=== PATIENT | female | born 1950 | race Caucasian/White ===

== ENCOUNTER → 2016-05-12 | Outpatient (CLI) | payer MEDICARE, OTHER ==
[~2016-05-12] MED LIST: ASPIRIN 81M81 MG/TA2 PO; BRILINTA90 MG PO; HCTZ 25MG TAB25 MG PO; TARKA 1 MG-2401 TER PO; VESICARE 5MG5 MG PO
== END ==
LOC: MC.RAD 08:37
DX: Z12.31 Encounter for screening mammogram for malignant neoplasm of breast (principal)

== ENCOUNTER → 2018-07-30 | Outpatient (CLI) | payer MEDICARE, OTHER | LOC: MC.RAD 09:48 | DX: Z12.31 Encounter for screening mammogram for malignant neoplasm of breast (principal) ==

== ENCOUNTER 2020-07-21 15:08 | Outpatient (CLI) | payer MEDICARE, OTHER ==
[~2020-07-21] VITALS: Ht 157.5 cm; Wt 75.0 kg
[2020-07-21 15:59] VITALS: BP 109/62; PULSE 63; TEMP 98.1
[2020-07-21] MEDS ORDERED: LIPITOR20 MG PO (16:13)
[2020-07-21] MEDS ORDERED: DITROPAN 5MG TAB5 MG PO (16:14)
[2020-07-21] MEDS ORDERED: VITAMIN D 400400 IU PO (16:14)
[2020-07-21] MEDS ORDERED: VITAMIN B COMPL1 SGL PO (16:15)
== END 2020-07-21 17:02 | disposition home or self-care (01) ==
LOC: EUO 15:08
DX: M81.0 Age-related osteoporosis without current pathological fracture (principal); M85.80 Other specified disorders of bone density and structure, unspecified site
CPT/HCPCS: J3489

== ENCOUNTER → 2020-07-26 | Outpatient (CLI) | payer MEDICARE ==
[~2020-07-26] MED LIST changes: +DITROPAN 5MG TAB5 MG PO; +LIPITOR20 MG PO; +VITAMIN B COMPL1 SGL PO; +VITAMIN D 400400 IU PO
== END ==
LOC: MC.RAD 13:45
DX: Z12.31 Encounter for screening mammogram for malignant neoplasm of breast (principal)

== ENCOUNTER 2021-04-06 09:18 | Emergency (ER) | payer MEDICARE ==
[~2021-04-06] VITALS: Ht 154.9 cm; Wt 72.7 kg
[2021-04-06] MEDS ORDERED: ALDACTONE 25MG25 M1 PO (09:50)
[2021-04-06 14:21] VITALS: TEMP 97.3
[2021-04-06 15:45] VITALS: BP 142/81; PULSE 79
== END 2021-04-06 15:50 | disposition home or self-care (01) ==
LOC: COL.ER 09:18
DX: T18.128A Food in esophagus causing other injury, initial encounter (principal); I10 Essential (primary) hypertension; Z79.899 Other long term (current) drug therapy
CPT/HCPCS: J0330; J1100; J2405; J2704; J7030

== ENCOUNTER 2021-07-11 13:51 | Outpatient (CLI) | payer MEDICARE ==
[~2021-07-11] VITALS: Ht 154.9 cm; Wt 74.7 kg
[~2021-07-11 13:51] MED LIST changes: +ALDACTONE 25MG25 M1 PO
[2021-07-11 14:18] VITALS: BP 112/57; PULSE 59; TEMP 97.2
[2021-07-11] MEDS ORDERED: DITROPAN XL 5MG5 M1 PO (14:24)
[2021-07-11] MEDS ORDERED: PROTONIX 40MG T40 MG PO (14:24)
[2021-07-11] MEDS ORDERED: GLUCOSAMINE & C1 CA2 PO (14:26)
== END 2021-07-11 15:54 | disposition home or self-care (01) ==
LOC: EUO 13:51
DX: M81.0 Age-related osteoporosis without current pathological fracture (principal)
CPT/HCPCS: J3489

== ENCOUNTER 2022-07-12 14:30 | Outpatient (CLI) | payer MEDICARE ==
[~2022-07-12] VITALS: Ht 154.9 cm; Wt 72.0 kg
[~2022-07-12 14:30] MED LIST changes: +DITROPAN XL 5MG5 M1 PO; +GLUCOSAMINE & C1 CA2 PO; +PROTONIX 40MG T40 MG PO
[2022-07-12 15:25] VITALS: BP 100/69; PULSE 50; TEMP 97.8
[2022-07-12] MEDS ORDERED: VERAPAMIL240 MG/TAB PO (15:27)
[2022-07-12] MEDS ORDERED: MAVIK4 MG PO (15:28)
[2022-07-12] MEDS ORDERED: DITROPAN 5MG TAB5 MG PO (15:29)
== END 2022-07-12 15:52 ==
LOC: EUO 14:30
DX: M85.89 Other specified disorders of bone density and structure, multiple sites (principal)
CPT/HCPCS: J3489

== ENCOUNTER → 2022-12-25 | Outpatient (CLI) | payer MEDICARE ==
[~2022-12-25] MED LIST changes: +MAVIK4 MG PO; +VERAPAMIL240 MG/TAB PO
== END ==
LOC: COL.RAD 07:29
DX: K44.9 Diaphragmatic hernia without obstruction or gangrene (principal); K21.9 Gastro-esophageal reflux disease without esophagitis

== ENCOUNTER 2023-02-16 14:48 | Emergency (ER) | payer MEDICARE ==
[~2023-02-16] VITALS: Ht 2.5 cm; Wt 61.8 kg
[~2023-02-16 14:48] MED LIST changes: +MASON NATURAL2000 IU PO; +MIRALAX PA17 GM/Dose PO; +MOVE FREE ULTR1 EAC1 PO; +NORCO 325 MG-51 TAB PO; +PROBIOTIC DIGE1 EACH PO
[2023-02-16 15:32] LABS: BASO % 0.3 % (0.0-2.0); EOS # 0.1 K/mm3 (0.0-0.7); EOS % 0.9 % (0.0-4.0); GRAN # 8.8 K/mm3 (1.4-6.5); GRAN % 74.6 % (42.2-75.2); HEMOGLOBIN 11.9 g/dl (12.5-16.0); LYMPH # 1.8 K/mm3 (1.2-3.4); LYMPH % 15.2 % (20.0-51.0); MEAN CELL VOLUME 97 fl (80.0-100.0); MEAN CORPUSCULAR HEMOGLOBIN 31 pg (27-31); MEAN CORPUSCULAR HGB CONC 32 g/dl (33.0-37.0); MEAN PLATELET VOLUME 9.4 fl (7.4-10.4); MONO % 8.5 % (1.7-9.3); PLATELET COUNT 466 K/mm3 (130-400); RED BLOOD COUNT 3.79 M/mm3 (4.10-5.30); REDCELL DISTRIBUTION WIDTH-CV 13.6 % (11.5-14.5)
[2023-02-16 15:33] LABS: HEMATOCRIT 36.7 % (37.0-47.0)
[2023-02-16 15:58] LABS: ALBUMIN 3.3 gm/dL (3.4-4.8); BILIRUBIN,TOTAL 0.5 mg/dL (0.2-1.2); CALCIUM 10.3 mg/dL (8.4-10.2); CREATININE, serum 1.22 mg/dL (0.57-1.11); POTASSIUM 4.5 mmol/L (3.5-4.5); TOTAL PROTEIN 8.1 gm/dL (6.2-8.1)
[2023-02-16 17:22] VITALS: BP 114/76; PULSE 101; TEMP 97.9
== END 2023-02-16 17:40 | disposition home or self-care (01) ==
LOC: COL.ER 14:48
PROVIDERS: Family Medicine
DX: R07.89 Other chest pain (principal); R06.02 Shortness of breath
CPT/HCPCS: J2270; J2405; Q9967

== ENCOUNTER → 2023-04-04 | Outpatient (CLI) | payer MEDICARE ==
[~2023-04-04] MED LIST changes: +Albuterol 0.083% Neb Soln 2.5 MG/3 ML UD IH ONE
== END ==
LOC: COL.CARD 13:59
DX: R06.02 Shortness of breath (principal)

== ENCOUNTER → 2023-04-05 | Outpatient (CLI) | payer MEDICARE ==
[~2023-04-05] MED LIST changes: +Methacholine Vial A (Clear Label Base-Cntrl) IH ONE; +Methacholine Vial B (Red Label) 0.0625 MG/ML 3 ML VIAL.NEB IH ONE; +Methacholine Vial C (Orange Label) 0.25 MG/ML 3 ML VIAL.NEB IH ONE; +Methacholine Vial D (Yellow Label) 1 MG/ML 3 ML VIAL.NEB IH ONE; +Methacholine Vial E (Green Label) 4 MG/ML 3 ML VIAL.NEB IH ONE; +Methacholine Vial F (Blue Label) 16 MG/ML 3 ML VIAL.NEB IH ONE
== END ==
LOC: COL.CARD 09:51
DX: R06.02 Shortness of breath (principal)
CPT/HCPCS: J7674

== ENCOUNTER → 2023-05-22 | Outpatient (CLI) | payer MEDICARE ==
[~2023-05-22] MED LIST changes: -Albuterol 0.083% Neb Soln 2.5 MG/3 ML UD IH ONE; -Methacholine Vial A (Clear Label Base-Cntrl) IH ONE; -Methacholine Vial B (Red Label) 0.0625 MG/ML 3 ML VIAL.NEB IH ONE; -Methacholine Vial C (Orange Label) 0.25 MG/ML 3 ML VIAL.NEB IH ONE; -Methacholine Vial D (Yellow Label) 1 MG/ML 3 ML VIAL.NEB IH ONE; -Methacholine Vial E (Green Label) 4 MG/ML 3 ML VIAL.NEB IH ONE; -Methacholine Vial F (Blue Label) 16 MG/ML 3 ML VIAL.NEB IH ONE
== END ==
LOC: MC.RAD 09:35
DX: Z12.31 Encounter for screening mammogram for malignant neoplasm of breast (principal)